=== PATIENT | male | born 1990 | race Caucasian/White ===

== ENCOUNTER 2017-12-19 20:56 | Emergency (ER) | payer BC ==
[2017-12-19] MEDS ORDERED: Benzonatate 100 MG CAP ONE (21:20)
[2017-12-19] MEDS ORDERED: Ibuprofen 800 MG TAB ONE (21:20)
[2017-12-19] MEDS ORDERED: Oseltamivir 75 MG CAP ONE (22:06)
== END 2017-12-19 22:17 | disposition home or self-care (01) ==
LOC: MADERS 20:56
DX: J10.1 Influenza due to other identified influenza virus with other respiratory manifestations (principal); F17.210 Nicotine dependence, cigarettes, uncomplicated
CPT/HCPCS: 99283

== ENCOUNTER 2023-07-13 17:17 | Emergency (ER) | payer BC, SELFPAY ==
[2023-07-13] MEDS ORDERED: Lidocaine 1% w/Epinephrine 1:100K 20 ML VIAL ONE (17:42)
[2023-07-13] MEDS ORDERED: Bupivacaine HCl 0.5%/Epinephrine 1:200,000/PF 30 ml Vial ONE (17:42)
== END 2023-07-13 18:00 | disposition home or self-care (01) ==
LOC: MADERS 17:17
DX: K02.9 Dental caries, unspecified (principal); F17.210 Nicotine dependence, cigarettes, uncomplicated
CPT/HCPCS: 64400